=== PATIENT | female | born 1995 | race Caucasian/White ===

== ENCOUNTER 2021-01-16 11:03 | Emergency (ER) | payer OTHER, SELFPAY ==
[2021-01-16 11:11] VITALS: BP 114/81; PULSE 87; RESP 18; TEMP 36.3; O2SAT 97
[2021-01-16 12:08] LABS: Basophils Percent Auto 0.3 % (0.2-1.2); Eosinophils Absolute Auto 0.2 K/mm3 (0-0.3); Eosinophils Percent Auto 2.1 % (0-4.4); Hematocrit 43.4 % (37.0-47.0); Hemoglobin 14.5 g/dL (12.0-15.0); Immature Granulocyte Absolute 0.03 K/mm3 (0.00-0.031); Immature Granulocyte Percent A 0.3 % (0-0.5); Lymphocytes Absolute Auto 1.69 K/mm3 (0.9-3.2); Lymphocytes Percent Auto 18.5 % (18.3-44.2); Mean Corpuscular HGB Conc 33.4 g/dl (32-36); Mean Corpuscular Hemoglobin 30.2 pg (26-34); Mean Corpuscular Volume 90.4 fl (80-100); Monocytes Absolute Auto 0.5 K/mm3 (0.1-0.6); Monocytes Percent Auto 5.4 % (2.6-8.5); Neutrophils Absolute Auto 6.7 K/mm3 (1.3-6.7); Neutrophils Percent Auto 73.4 % (45.5-73.1); Platelet Count Result 228 k/mm3 (150-375); Red Cell Distribution Width 12.7 % (11.5-14.5); White Blood Count 9.1 K/mm3 (4.5-10.0)
[2021-01-16 12:12] LABS: Add Urine Microscopic? YES; Appearance Urine Cloudy (Clear); Bilirubin Urine Negative (Negative); Blood Urine 3+ (Negative); Color Urine Amber (Yellow); Glucose Urine UA Negative (Negative); Ketones Urine Negative (Negative); Leukocyte Esterase Ur 1+ LEU/UL (Negative); Mucus Urine Few /lpf; Nitrate Urine Negative (Negative); Protein Urine 2+ mg/dL (Negative); RBC Urine >75 /hpf (0-2); Specific Grav Ur 1.027 (1.001-1.035); Squamous Epithelial Cell Urine Few /hpf (Few); Urobilinogen Urine Negative mg/dL (<2.0); WBC Urine >75 /hpf
[2021-01-16 12:33] LABS: Beta HCG Quantitative < 2.39 mIU/ML
== END 2021-01-16 12:07 | disposition left against medical advice (07) ==
LOC: ANHED 11:41
PROVIDERS: Emergency Provider Emergency Medicine; PCP Internal Medicine
DX: O20.9 Hemorrhage in early pregnancy, unspecified (principal)
CPT/HCPCS: 36415; 81001; 81025; 84702; 85025; 85461; 87086; 87088; 99199

== ENCOUNTER 2023-03-14 09:06 | Emergency (ER) | payer OTHER, SELFPAY ==
[2023-03-14 09:06] VITALS: BP 104/62; PULSE 84; RESP 18; TEMP 36.7; O2SAT 98
--- NOTE | 2023-03-14 09:10 | ED.FEMALEGU ---
HPI - Female Genitourinary General Chief complaint: Urogenital-Female Stated complaint: hematuria Time Seen by Provider: 03/14/23 09:10 Source: patient Mode of arrival: ambulatory Limitations: no limitations History of Present Illness HPI Narrative: 27-year-old female, A1 and 15 weeks presents to the ER with -- bleeding per vaginal. She noted some blood on the wipes. No abdominal pain no fever. On Reglan for vomiting of MD elicited complaint: possible miscarriage Onset (ago): hour(s) ( started this morning 2 hours ago) Severity: mild Vaginal discharge: other ( blood on the wipes) Vaginal bleeding: scant Exacerbating factors: none Relieving factors: none Associated symptoms: denies other symptoms Expected Date of Delivery: 09/03/23 Related Data : 3 Para: 1 Total number of abortions (spontaneous and elective): 1 Home Medications Medication Instructions Recorded Confirmed albuterol sulfate 90 mcg/actuation 2 puff inhalation PRN PRN Wheezing 03/14/23 03/14/23 aerosol inhaler buspirone 7.5 mg tablet 7.5 mg PO DAILY 03/14/23 03/14/23 famotidine 20 mg tablet 20 mg PO DAILY 03/14/23 03/14/23 fluticasone 100 mcg-salmeterol 50 2 inh inhalation DAILY 03/14/23 03/14/23 mcg/dose blistr powdr for inhalation (Advair Diskus) folic acid 1 mg tablet 1 mg PO DAILY 03/14/23 03/14/23 metoclopramide HCl 10 mg tablet 10 mg PO PRN PRN Nausea And 03/14/23 03/14/23 Vomiting ondansetron HCl 4 mg tablet 4 mg PO PRN PRN Nausea 03/14/23 03/14/23 Allergies Allergy/AdvReac Type Severity Reaction Status Date / Time No Known Allergies Allergy Verified 03/14/23 09:10 Review of Systems Review of Systems: All systems reviewed & are unremarkable except as noted in HPI and below Constitutional: Constitutional: Reports as per HPI and Reports no additional constitutional complaints Eyes: Eyes: Reports as per HPI and Reports no additional eye complaints ENT: Reports system reviewed and no additional complaints, except as documented and Reports as per HPI Cardiovascular: Cardiovascular: Reports as per HPI and Reports no additional cardiovascular complaints Respiratory: Respiratory: Reports as per HPI and Reports no additional respiratory complaints Gastrointestinal: Gastrointestinal: Reports as per HPI and Reports no additional gastrointestinal complaints Genitourinary: Genitourinary: Reports no additional female genitourinary complaints and Reports as per HPI Musculoskeletal: Musculoskeletal: Reports no additional musculoskeletal complaints and Reports as per HPI Integumentary/Breasts: Skin/Breast: Reports system reviewed and no additional complaints, except as docu and Reports as per HPI Neurologic: Reports system reviewed and no additional complaints, except as documented and Reports as per HPI Psychiatric: Psychiatric: Reports no additional psychiatric complaints and Reports as per HPI Endocrine: Endocrine: Reports no additional endocrine complaints and Reports as per HPI Hematologic/Lymphatic: Hematologic/Lymphatic: Reports no additional hematologic/lymphatic complaints and Reports as per HPI Allergic/Immunologic: Allergic/Immunologic: Reports no additional allergic/immunologic complaints and Reports as per HPI [facility] Family History Family History Father Diabetes mellitus Family history of chronic obstructive pulmonary disease Family history of neuropathy Grandparent Hypertension Family history of cardiovascular disease Carcinoma of colon Family history of lung cancer Family history of malignant neoplasm of bone Family history of malignant neoplasm of breast in first degree relative Family history of malignant neoplasm of ovary Mother Asthma Sibling Asthma Social History Social History Smoking status: Former smoker Smoking end date: 07/30/16 Alcohol intake:
[2023-03-14 09:26] LABS: Appearance Urine Clear (Clear); Bilirubin Urine Negative (Negative); Blood Urine Negative (Negative); Color Urine Light Yellow (Yellow); Glucose Urine UA Negative (Negative); Ketones Urine Negative (Negative); Leukocyte Esterase Ur Negative LEU/UL (Negative); Nitrate Urine Negative (Negative); Protein Urine Negative (Negative); Specific Grav Ur <= 1.005 (1.010-1.020); Urobilinogen Urine 0.2 mg/dL (0.2-1.0); pH Urine 7.5 (5.0-8.0)
[2023-03-14 09:33] LABS: Basophils Absolute Auto 0.03 K/mm3 (0.00-0.10); Basophils Percent Auto 0.4 % (0.0-1.0); Eosinophils Absolute Auto 0.13 K/mm3 (0.02-0.50); Eosinophils Percent Auto 1.7 % (1.0-6.0); Hematocrit 38.1 % (35.0-49.0); Hemoglobin 12.8 g/dL (12.0-15.0); Immature Granulocyte Absolute 0.04 K/mm3 (0.00-0.00); Immature Granulocyte Percent A 0.5 % (0.0-0.0); Lymphocytes Absolute Auto 1.12 K/mm3 (1.10-4.50); Mean Corpuscular HGB Conc 33.6 g/dL (32.0-36.0); Mean Corpuscular Hemoglobin 31.1 pg (27.0-31.0); Mean Corpuscular Volume 92.7 fL (78.0-102.0); Mean Platelet Volume 11.1 fl (9.2-11.8); Monocytes Absolute Auto 0.38 K/mm3 (0.10-0.90); Monocytes Percent Auto 5.1 % (2.0-11.0); Neutrophils Absolute Auto 5.8 K/mm3 (1.7-7.2); Neutrophils Percent Auto 77.3 % (50.0-70.0); Platelet Count Result 195 K/mm3 (150-420); Red Blood Count 4.11 M/mm3 (4.20-5.40); Red Cell Distribution Width 13.3 % (11.6-14.4); White Blood Count 7.5 K/mm3 (4.8-10.8)
[2023-03-14 09:35] LABS: Add Urine Microscopic? NO
[2023-03-14 09:48] LABS: Albumin Level 3.1 g/dL (3.4-5.0); Alkaline Phosphatase 47 U/L (46-116); Anion Gap 9 mmol/L (8-16); Bilirubin,Total 0.5 mg/dL (0.00-1.00); Blood Urea Nitrogen 4 mg/dL (7-18); Calcium 8.6 mg/dL (8.5-10.1); Carbon Dioxide 26 mmol/L (21-32); Chloride 105 mmol/L (98-108); Estimated CRCL calculation 136 ml/min; Estimated Glomerular Filt Rate > 60; Glucose 84 mg/dL (70-99); Osmolality Calculated 285 mOsm/kg (285-295); Potassium 3.7 mmol/L (3.5-5.1); Sodium 140 mmol/L (136-145); Total Protein 6.3 g/dL (6.4-8.2)
--- NOTE | 2023-03-14 09:48 | PC.NURSE ---
HIV REFUSAL FORM SIGNED BY PT AT THIS TIME. FHT OBTAINED. FETUS NOTED TO BE ACTIVE. MOTHER AT BEDSIDE. WILL CONTINUE TO MONITOR.
[2023-03-14 09:49] LABS: Partial Thromboplastin Time 27.5 SEC (23.90-30.70); Prothrombin Time 11.2 Seconds (9.50-12.10)
[2023-03-14 09:59] LABS: Alanine Aminotransferase 6 U/L (14-59); Aspartate Amino Transferase 10 U/L (15-37)
[2023-03-14 10:28] VITALS: BP 106/66; PULSE 82; RESP 18; O2SAT 99
--- NOTE | 2023-03-14 10:35 | PC.NURSE ---
pt reported she did not want to wait for hcg results, erp is aware. nad noted upon dc.
== END 2023-03-14 10:28 | disposition home or self-care (01) ==
PROVIDERS: Emergency Provider Internal Medicine Critical Care Medicine
DX: O20.0 Threatened abortion (principal); Z87.891 Personal history of nicotine dependence; Z79.899 Other long term (current) drug therapy; Z3A.15 15 weeks gestation of pregnancy
CPT/HCPCS: 36415; 80053; 81003; 84702; 85025; 85610; 85730; 99283

== ENCOUNTER 2024-04-21 09:33 | Emergency (ER) | payer OTHER, SELFPAY ==
[2024-04-21 09:34] VITALS: BP 99/65; PULSE 68; RESP 18; TEMP 36.2; O2SAT 99
[2024-04-21 09:36] VITALS: BP 99/65; PULSE 68; RESP 18; TEMP 36.2; O2SAT 99
--- NOTE | 2024-04-21 09:39 | ED.EAR ---
HPI - Ear Problem General Chief complaint: Ear Stated complaint: ear pain in both ears Time Seen by Provider: 04/21/24 09:39 Source: patient and family Mode of arrival: ambulatory History of Present Illness HPI Narrative: bilateral ear aches for the last 4 days feeling like having water inside affecting her balance sometime. She denies any fever, chills, nausea, vomiting, runny nose, sneezing, coughing. History of recurrent ear infections Related Data Home Medications Medication Instructions Recorded Confirmed aripiprazole 5 mg tablet 5 mg PO DAILY 04/21/24 04/21/24 Allergies Allergy/AdvReac Type Severity Reaction Status Date / Time No Known Allergies Allergy Verified 04/21/24 09:34 Review of Systems Review of Systems: All systems reviewed & are unremarkable except as noted in HPI and below PMFSH Family History Family History Father Diabetes mellitus Family history of chronic obstructive pulmonary disease Family history of neuropathy Grandparent Hypertension Family history of cardiovascular disease Carcinoma of colon Family history of lung cancer Family history of malignant neoplasm of bone Family history of malignant neoplasm of breast in first degree relative Family history of malignant neoplasm of ovary Mother Asthma Sibling Asthma Social History Social History Smoking status: Former smoker Smoking end date: 07/30/16 Alcohol intake: never Gender identity (if verbalized by the patient): Female Exam Narrative: General appearance: Well-developed, well-nourished Skin: Normal color Head: Normocephalic, nontraumatic Eyes: Clear conjunctiva ENT: Oropharynx normal, opaque tympanic membrane bilaterally, nose normal Neck: Supple, nontender Chest and respiratory: Airway patent, no respiratory distress, no accessory muscle use Heart: Regular rate/rhythm Abdomen: Soft, nontender, no organomegaly, quiet bowel sounds Vascular: Normal peripheral pulses, normal capillary refill. Musculoskeletal: Normal range of motion, nontender back Neurologic: Alert and oriented ?3, [employer] is normal as tested, no gross motor deficit Course Vital Signs Vital signs: Vital Signs Temperature 36.2 C L 04/21/24 09:34 Pulse Rate 68 04/21/24 09:34 Respiratory Rate 18 04/21/24 09:34 Blood Pressure 99/65 L 04/21/24 09:34 Pulse Oximetry 99 04/21/24 09:34 Oxygen Delivery Room Air 04/21/24 09:34 Temperature 36.2 C L 04/21/24 09:36 Pulse Rate 68 04/21/24 09:36 Respiratory Rate 18 04/21/24 09:36 Blood Pressure 99/65 L 04/21/24 09:36 Pulse Oximetry 99 04/21/24 09:36 Oxygen Delivery Room Air 04/21/24 09:36 Medical Decision Making Vital Signs Vital Signs: Vital Signs Temperature 36.2 C L 04/21/24 09:34 Pulse Rate 68 04/21/24 09:34 Respiratory Rate 18 04/21/24 09:34 Blood Pressure 99/65 L 04/21/24 09:34 Pulse Oximetry 99 04/21/24 09:34 Oxygen Delivery Room Air 04/21/24 09:34 Temperature 36.2 C L 04/21/24 09:36 Pulse Rate 68 04/21/24 09:36 Respiratory Rate 18 04/21/24 09:36 Blood Pressure 99/65 L 04/21/24 09:36 Pulse Oximetry 99 04/21/24 09:36 Oxygen Delivery Room Air 04/21/24 09:36 Critical Care Time Critical Care Time Critical Care Time: No Discharge Plan Discharge Clinical Impression: Acute otalgia Patient Disposition: Home, Self-Care Condition: Stable Instructions: Antibiotic Form, Earache (ED) Additional Instructions: Return if symptoms are worsening , call your family physician for appointment, take Rush
== END 2024-04-21 09:54 | disposition home or self-care (01) ==
LOC: CHSED 09:50
PROVIDERS: Emergency Provider Emergency Medicine
DX: H92.03 Otalgia, bilateral (principal); Z87.891 Personal history of nicotine dependence
CPT/HCPCS: 99283